=== PATIENT | male | born 1950 | race Two or more races ===

== ENCOUNTER 2018-10-01 06:05 | Emergency (ER) | payer BC ==
[~2018-10-01] VITALS: Ht 180.3 cm; Wt 78.5 kg
[2018-10-01 06:09] VITALS: Ht 180.3 cm; Wt 78.5 kg
[2018-10-01 07:08] VITALS: BP 125/76
== END 2018-10-01 07:08 | disposition home or self-care (01) ==
LOC: ED 06:05
DX: J11.1 Influenza due to unidentified influenza virus with other respiratory manifestations (principal)
CPT/HCPCS: Q0092